=== PATIENT | female | born 1975 | race Caucasian/White ===

== ENCOUNTER 2021-11-06 06:28 | Day surgery (SDC) | payer OTHER, SELFPAY ==
[~2021-11-06] VITALS: Ht 162.6 cm; Wt 121.6 kg
[2021-11-06 07:02] LABS: HCG,QUAL RESULT NEGATIVE (NEGATIVE)
[2021-11-06] MEDS ORDERED: MIDAZOLAM HCL 5 MG/5 ML VIAL ONE ×2 (07:43→08:11)
[2021-11-06] MEDS ORDERED: MEPERIDINE 100 MG INJ. 100 MG/ML VIAL ONE (07:43)
[2021-11-06] MEDS ORDERED: DIPHENHYDRAMINE INJ 50 MG/ML VIAL ONE (08:42)
[2021-11-06 11:11] VITALS: BP_SYST 129
== END 2021-11-06 09:40 | disposition home or self-care (01) ==
LOC: SDS 06:28 → SMU 06:30 → SDS 09:40
PROVIDERS: ATTEND Internal Medicine Gastroenterology
DX: K62.5 Hemorrhage of anus and rectum (principal); I10 Essential (primary) hypertension; E66.9 Obesity, unspecified; K64.8 Other hemorrhoids; Z20.822 Contact with and (suspected) exposure to COVID-19; Z79.899 Other long term (current) drug therapy
CPT/HCPCS: 36415; 45385; 84703; 87426; 88305; 99152; 99153; G0378; J1200; J2175; J2250; U0003